=== PATIENT | male | born 1940 | race Caucasian/White ===

== ENCOUNTER → 2016-08-15 | Outpatient (CLI) | payer MEDICARE | LOC: OPSV 09:00 → CT 11:30 | DX: Z08 Encounter for follow-up examination after completed treatment for malignant neoplasm (principal); E86.0 Dehydration; R59.9 Enlarged lymph nodes, unspecified; R10.9 Unspecified abdominal pain; R06.02 Shortness of breath; R93.5 Abnormal findings on diagnostic imaging of other abdominal regions, including retroperitoneum; Z85.038 Personal history of other malignant neoplasm of large intestine; Z91.89 Other specified personal risk factors, not elsewhere classified | CPT/HCPCS: 71260; 96360; 96361; J7030; J7050; Q9965 ==

== ENCOUNTER → 2020-07-15 | Outpatient (CLI) | payer MEDICARE ==
[~2020-07-15] MED LIST: CRESTOR 10 MG T10 MG PO; FERROUS SULFAT325 M2 PO; NITROSTAT0.4 MG SL; TOPROL XL25 MG PO
== END ==
LOC: HEART 5 09:07
DX: I50.42 Chronic combined systolic (congestive) and diastolic (congestive) heart failure (principal); R06.02 Shortness of breath; I08.3 Combined rheumatic disorders of mitral, aortic and tricuspid valves; I27.20 Pulmonary hypertension, unspecified; R93.1 Abnormal findings on diagnostic imaging of heart and coronary circulation; Z95.0 Presence of cardiac pacemaker
CPT/HCPCS: 93306

== ENCOUNTER 2020-11-09 15:17 | Emergency (ER) | payer MEDICARE | END 2020-11-09 18:10 | disposition home or self-care (01) | LOC: ER1 15:17 | DX: M79.661 Pain in right lower leg (principal) | CPT/HCPCS: 93971; 99283 ==

== ENCOUNTER → 2021-08-24 | Outpatient (CLI) | payer MEDICARE | LOC: CT 13:56 | DX: R10.9 Unspecified abdominal pain (principal); K57.30 Diverticulosis of large intestine without perforation or abscess without bleeding; K59.00 Constipation, unspecified; Z90.49 Acquired absence of other specified parts of digestive tract; I70.0 Atherosclerosis of aorta | CPT/HCPCS: 36415; 82565; 84520; Q9967 ==

== ENCOUNTER 2021-10-01 08:38 | Inpatient (IN) | payer MEDICARE ==
[~2021-10-01] VITALS: Ht 180.3 cm; Wt 83.9 kg
[2021-10-01 09:34] LABS: HEMOGLOBIN 10.2 gm/dl (14.0-17.5); RED BLOOD COUNT 4.78 M/UL (4.20-5.50); WHITE BLOOD COUNT 12.8 K/UL (4.5-11.0)
[2021-10-01 10:07] LABS: BUN/CREATININE RATIO 18 (0-10)
[2021-10-01] MEDS ORDERED: CRESTOR 10 MG T10 MG PO (19:07)
[2021-10-01] MEDS ORDERED: LOSARTAN POTASS25 MG PO (19:08)
[2021-10-01] MEDS ORDERED: CHILDREN'S ASPI81 MG PO (19:10)
[2021-10-01] MEDS ORDERED: FARXIGA5 MG PO (19:12)
[2021-10-02 03:21] LABS: HEMOGLOBIN 9.4 gm/dl (14.0-17.5); RED BLOOD COUNT 4.41 M/UL (4.20-5.50); WHITE BLOOD COUNT 11.7 K/UL (4.5-11.0)
[2021-10-02 03:46] LABS: BUN/CREATININE RATIO 18 (0-10)
[2021-10-02] MEDS ORDERED: CARVEDILOL6.25 MG PO (12:21)
[2021-10-02] MEDS ORDERED: SUCRALFATE1 GM PO (12:22)
--- NOTE | 2021-10-03 01:17 | NUR ---
APPROX 2001 CALLED AND SPOKE WITH DR LEBRON AT [facility] AND REQUESTED. THEY STATED THEY WERE TOLD THE NG TUBE WOULD BE PULLED AFTER SURGERY, PT IS ALSO WANTING TO EAT. SPOKE WITH STATES CAN PULL NG, SIPS AND CHIPS FOR TONIGHT, CLEAR LIQUID IN AM. NOTIFIED PT AND OF ABOVE THEY ARE FINE WITH THIS. APPROX [id number] NG WAS PULLED. PT TOLERATED WELL.
[2021-10-03 08:36] LABS: HEMOGLOBIN 8.9 gm/dl (14.0-17.5); RED BLOOD COUNT 4.22 M/UL (4.20-5.50)
[2021-10-03 08:54] LABS: BUN/CREATININE RATIO 21 (0-10)
[2021-10-04 05:35] LABS: HEMOGLOBIN 8.3 gm/dl (14.0-17.5); RED BLOOD COUNT 3.94 M/UL (4.20-5.50); WHITE BLOOD COUNT 11.6 K/UL (4.5-11.0)
== END 2021-10-05 09:32 | disposition home or self-care (01) | DRG 330 ==
LOC: ER1 08:38 → CDU 17:23 → M/S 18:58
PROVIDERS: Emergency Medicine; ADMIT Surgery
PROC: 0DN84ZZ Release Small Intestine, Percutaneous Endoscopic Approach (ICD-10-PCS; 2021-10-02)
PROC: 0DQ84ZZ Repair Small Intestine, Percutaneous Endoscopic Approach (ICD-10-PCS; principal; 2021-10-02 10:11)
DX: K56.50 Intestinal adhesions [bands], unspecified as to partial versus complete obstruction (principal); K91.71 Accidental puncture and laceration of a digestive system organ or structure during a digestive system procedure; D50.9 Iron deficiency anemia, unspecified; Z20.822 Contact with and (suspected) exposure to COVID-19; K56.7 Ileus, unspecified; E11.9 Type 2 diabetes mellitus without complications; I25.10 Atherosclerotic heart disease of native coronary artery without angina pectoris; Z80.0 Family history of malignant neoplasm of digestive organs; Z90.49 Acquired absence of other specified parts of digestive tract; Z95.810 Presence of automatic (implantable) cardiac defibrillator; Z95.5 Presence of coronary angioplasty implant and graft; I25.2 Old myocardial infarction; Y83.8 Other surgical procedures as the cause of abnormal reaction of the patient, or of later complication, without mention of misadventure at the time of the procedure
CPT/HCPCS: 36415; 74018; 80048; 80053; 81001; 82962; 83605; 85025; 85027; 93005; 96374; 96375; 99285; J0690; J1100; J1170; J1756; J2001; J2270; J2405; J2704; J3010; Q9965